=== PATIENT | female | born 1995 | race Caucasian/White ===

== ENCOUNTER 2017-04-04 11:08 | Emergency (ER) | payer BC, OTHER ==
[~2017-04-04] VITALS: Ht 167.6 cm; Wt 53.2 kg
[~2017-04-04 11:08] MED LIST: ALBU0.63 NEB
[2017-04-04] MEDS ORDERED: ALBUTEROL/IPRATROPIUM 2.5MG/0.5MG, 3 ML NPPB ONE (12:30)
[2017-04-04] MEDS ORDERED: ALBUTEROL/IPRATROPIUM 2.5MG/0.5MG, 3 ML ONE (12:45)
[2017-04-04 12:51] LABS: RAPID INFLUENZA A POSITIVE (Negative); RAPID INFLUENZA B Negative (Negative)
[2017-04-04] MEDS ORDERED: HYDROmorphone 1 MG/ML, 1ML IM ONE (14:00)
[2017-04-04] MEDS ORDERED: HYDROmorphone 2 MG/ML, 1ML ONE (14:01)
[2017-04-04 14:56] VITALS: BP 120/76
== END 2017-04-04 14:58 | disposition home or self-care (01) ==
LOC: ED 13:19
DX: J45.30 Mild persistent asthma, uncomplicated (principal); J11.1 Influenza due to unidentified influenza virus with other respiratory manifestations; J98.2 Interstitial emphysema; J00 Acute nasopharyngitis [common cold]
CPT/HCPCS: 71020; 87400; 94640; 96372; 99285; J1170; J7512; J7620

== ENCOUNTER 2017-04-04 20:43 | Emergency (ER) | payer OTHER ==
[~2017-04-04] VITALS: Ht 167.6 cm; Wt 53.2 kg
[2017-04-04] MEDS ORDERED: methylPREDNISolone SOD SUCC 125 MG/2 ML IVP ONE (21:30)
[2017-04-04] MEDS ORDERED: ALBUTEROL/IPRATROPIUM 2.5MG/0.5MG, 3 ML NPPB SCH (21:30)
[2017-04-04] MEDS ORDERED: ALBUTEROL/IPRATROPIUM 2.5MG/0.5MG, 3 ML NPPB PRN (21:30)
[2017-04-04] MEDS ORDERED: SODIUM CHLORIDE 0.9% 1,000ML IVBOLUS ONE (21:30)
[2017-04-04] MEDS ORDERED: SODIUM CHLORIDE FLUSH 10ML SYR IVF ONE (21:30)
[2017-04-04] MEDS ORDERED: ALBUTEROL/IPRATROPIUM 2.5MG/0.5MG, 3 ML ONE (21:36)
[2017-04-04 23:31] VITALS: BP 108/51
== END 2017-04-04 23:33 | disposition home or self-care (01) ==
LOC: ED 23:26
DX: J45.41 Moderate persistent asthma with (acute) exacerbation (principal); J10.1 Influenza due to other identified influenza virus with other respiratory manifestations
CPT/HCPCS: 71010; 93005; 94640; 99284

== ENCOUNTER 2017-06-20 23:18 | Inpatient (IN) | payer OTHER ==
[~2017-06-20] VITALS: Ht 167.6 cm; Wt 55.1 kg
[2017-06-20] MEDS ORDERED: SODIUM CHLORIDE 0.9% 1,000ML IVBOLUS ONE (23:30)
[2017-06-20] MEDS ORDERED: methylPREDNISolone SOD SUCC 125 MG/2 ML IVP ONE (23:30)
[2017-06-20] MEDS ORDERED: SODIUM CHLORIDE FLUSH 10ML SYR IVF ONE (23:30)
[2017-06-20] MEDS ORDERED: ALBUTEROL SULFATE 2.5 MG/3 ML NPPB ONE (23:30)
[2017-06-20] MEDS ORDERED: MAGNESIUM SULFATE PMX 2GM/50ML 50 ML IV ONE (23:30)
[2017-06-20] MEDS ORDERED: methylPREDNISolone SOD SUCC 125 MG/2 ML ONE (23:40)
[2017-06-20 23:41] LABS: BASOPHILS # (AUTO) 0.04 x10^3/uL (0-0.1); BASOPHILS % (AUTO) 0 % (0-1); EOSINOPHILS # (AUTO) 1.16 x10^3/uL (0-0.4); EOSINOPHILS % (AUTO) 9 % (1-7); LYMPHOCYTES # (AUTO) 2.06 x10^3/uL (1-3.4); LYMPHOCYTES % (AUTO) 16 % (22-44); MD NO; MEAN CORPUSCULAR HEMOGLOBIN 29.4 pg (27.0-34.8); MEAN CORPUSCULAR HGB CONC 34.2 g/dL (32.4-35.8); MEAN PLATELET VOLUME 8.3 fL (7.4-10.4); MONOCYTES # (AUTO) 0.86 x10^3/uL (0.2-0.8); MONOCYTES % (AUTO) 7 % (2-9); NEUTROPHILS # (AUTO) 9.02 x10^3/uL (1.8-6.8); NEUTROPHILS % (AUTO) 69 % (42-75); PLATELET COUNT 227 x10^3/uL (130-400); RED BLOOD COUNT 4.69 x10^6/uL (3.82-5.3); RED CELL DISTRIBUTION WIDTH 13.4 % (9.6-15.2)
[2017-06-20 23:51] LABS: ALBUMIN 3.8 g/dL (3.4-5.0); ANION GAP 6 mmol/L (5-15); CALCIUM 8.2 mg/dL (8.5-10.1); CHLORIDE 109 mmol/L (98-107); CREATININE 0.88 mg/dL (0.55-1.02)
[2017-06-21] MEDS ORDERED: KETOROLAC 30 MG/1 ML IVPush ONE (01:30)
[2017-06-21] MEDS ORDERED: KETOROLAC 30 MG/1 ML ONE (02:11)
[2017-06-21 03:22] VITALS: BP 109/62
[2017-06-21] MEDS ORDERED: ALBUTEROL/IPRATROPIUM 2.5MG/0.5MG, 3 ML NPPB PRN (03:30)
[2017-06-21] MEDS: HEPARIN 5,000 UNITS/ML, 1ML SQ SCH ×3 (04:14→20:30)
[2017-06-21] MEDS: FLUTICASONE/VILANTEROL 200-25MCG/INH INH SCH ×2 (04:14→09:56)
[2017-06-21] MEDS: SODIUM CHLORIDE 0.9% 1,000 ML IV SCH ×2 (04:23→13:59)
[2017-06-21] MEDS: methylPREDNISolone SOD SUCC 125 MG/2 ML IVPush SCH ×4 (04:23→21:36)
[2017-06-21] MEDS ORDERED: LORATADINE 10 MG TABLET PO PRN (04:30)
[2017-06-21] MEDS ORDERED: DOCUSATE 100 MG CAPSULE PO PRN (04:30)
[2017-06-21] MEDS ORDERED: BISACODYL 10 MG SUPP PR PRN (04:30)
[2017-06-21] MEDS ORDERED: ENALAPRILAT 1.25 MG/ML, 2ML IVPush PRN (04:30)
[2017-06-21] MEDS ORDERED: OXYcodone IR 5MG TABLET PO PRN (04:30)
[2017-06-21] MEDS ORDERED: ONDANSETRON 2MG/ML, 2ML IVPush PRN (04:30)
[2017-06-21] MEDS ORDERED: ACETAMINOPHEN 325 MG TABLET PO PRN (04:30)
[2017-06-21] MEDS ORDERED: hydrALAzine 20 MG/ML, 1ML IVPush PRN (04:30)
[2017-06-21] MEDS ORDERED: POLYETHYLENE GLYCOL 17 GM PACKET PO PRN (04:30)
[2017-06-21] MEDS ORDERED: morphine SULFATE 10 MG/ML, 1ML IVPush PRN (04:30)
[2017-06-21] MEDS: ALBUTEROL/IPRATROPIUM 2.5MG/0.5MG, 3 ML NPPB SCH ×6 (04:55→22:53)
[2017-06-21 05:37] LABS: FREE T4 (FREE THYROXINE) 1.18 ng/dL (0.76-1.46)
[2017-06-21 06:10] LABS: HEMOGLOBIN A1C 4.9 % (4.2-6.3)
[2017-06-21 07:05] VITALS: BP 92/49
[2017-06-21 12:40] VITALS: BP 101/67
[2017-06-21] MEDS ORDERED: DILTIAZEM 5 MG/ML, 5ML IVPush PRN (18:00)
[2017-06-21 19:13] VITALS: BP 117/67
[2017-06-22 00:48] VITALS: BP 104/63
[2017-06-22] MEDS: HEPARIN 5,000 UNITS/ML, 1ML SQ SCH ×2 (03:44→12:03)
[2017-06-22] MEDS: methylPREDNISolone SOD SUCC 125 MG/2 ML IVPush SCH ×2 (04:39→10:03)
[2017-06-22 05:38] LABS: MEAN CORPUSCULAR HEMOGLOBIN 29.1 pg (27.0-34.8); MEAN CORPUSCULAR HGB CONC 33.9 g/dL (32.4-35.8); MEAN CORPUSCULAR VOLUME 86.1 fL (80-100); MEAN PLATELET VOLUME 8.9 fL (7.4-10.4); PLATELET COUNT 254 x10^3/uL (130-400); RED BLOOD COUNT 4.53 x10^6/uL (3.82-5.3); RED CELL DISTRIBUTION WIDTH 13.6 % (9.6-15.2)
[2017-06-22 05:39] LABS: CHLORIDE 111 mmol/L (98-107)
[2017-06-22 05:52] LABS: ALANINE AMINOTRANSFERASE 19 U/L (12-78); ALBUMIN 3.4 g/dL (3.4-5.0); ALKALINE PHOSPHATASE 52 U/L (45-117); ANION GAP 13 mmol/L (5-15); BILIRUBIN,TOTAL 0.2 mg/dL (0.2-1.0); CALCIUM 8.1 mg/dL (8.5-10.1); CHOL/HDL RATIO 2.5; CHOLESTEROL, TOTAL 127 mg/dL (140-239); CREATININE 0.78 mg/dL (0.55-1.02); HDL CHOL % 40 % (28-40); HDL CHOLESTEROL (DIRECT) 51 mg/dL (40-60); LDL CHOLESTEROL,CALCULATED 65 mg/dL (54-169); LDL/HDL RATIO 1.3 (0.5-3.0); TOTAL PROTEIN 6.8 g/dL (6.4-8.2); TRIGLYCERIDES 55 mg/dL (50-200); VLDL CHOLESTEROL 11 mg/dL (0-25)
[2017-06-22 06:00] LABS: MD YES
[2017-06-22 06:01] LABS: BAND#(MANUAL) 0.45 x10^3/uL; BANDS%(MANUAL) 2 % (0-7); LYMPH#(MANUAL) 2.02 x10^3/uL (1-3.4); LYMPHS% (MANUAL) 9 % (22-44); MONOS#(MANUAL) 0.45 x10^3/uL (0.3-2.7); MONOS% (MANUAL) 2 % (2-9); SEG#(MANUAL) 19.49 x10^3/uL (1.8-6.8); SEGS% (MANUAL) 87 % (42-75)
[2017-06-22 06:02] LABS: <PLATELET ESTIMATE> ADEQUATE; <PLT MORPHOLOGY> NORMAL PLT MORPH; <RBC MORPHOLOGY> NORMAL
[2017-06-22 07:05] VITALS: BP 105/62
[2017-06-22] MEDS: ALBUTEROL/IPRATROPIUM 2.5MG/0.5MG, 3 ML NPPB SCH ×2 (07:10→11:30)
[2017-06-22] MEDS: FLUTICASONE/VILANTEROL 200-25MCG/INH INH SCH (09:24)
[2017-06-22] MEDS ORDERED: DILTIAZEM 60 MG CAP.ER.12H PO SCH (10:30)
[2017-06-22] MEDS ORDERED: ALBU90AE INH (12:15)
[2017-06-22] MEDS ORDERED: IPRA3AMP NPPB (12:15)
[2017-06-22] MEDS ORDERED: DILT60CA PO (12:15)
[2017-06-22] MEDS ORDERED: METH4TAB2 PO (12:15)
[2017-06-22] MEDS ORDERED: FLUT1BLS INH (12:15)
[2017-06-22] MEDS ORDERED: LORA10TA75 PO (12:15)
[2017-06-22] MEDS ORDERED: ALBUTEROL SULFATE 2.5 MG/3 ML NPPB PRN (12:30)
[2017-06-22 12:51] VITALS: BP 114/71
== END 2017-06-22 13:23 | disposition home or self-care (01) | DRG 189 ==
LOC: ED 23:59 → EDIP 06-21 03:01 → 4EST 06-21 03:11 → DCLOUNGE 06-22 13:15
PROVIDERS: ADMIT Internal Medicine; ATTEND Family Medicine
DX: J96.00 Acute respiratory failure, unspecified whether with hypoxia or hypercapnia (principal); J45.902 Unspecified asthma with status asthmaticus; M47.816 Spondylosis without myelopathy or radiculopathy, lumbar region; D72.829 Elevated white blood cell count, unspecified; Z80.3 Family history of malignant neoplasm of breast; Z83.3 Family history of diabetes mellitus; Z88.1 Allergy status to other antibiotic agents
CPT/HCPCS: 36415; 71045; 80048; 80053; 80061; 82040; 83036; 83735; 84439; 84443; 84703; 85025; 94640; 94644; 96374; 96375; J1885; J7613; J7620; J2930; J3475; J7030

== ENCOUNTER 2017-12-28 21:41 | Emergency (ER) | payer MEDICAID ==
[~2017-12-28] VITALS: Ht 167.6 cm; Wt 55.2 kg
[~2017-12-28 21:41] MED LIST changes: +ALBU90AE INH; +DILT60CA PO; +FLUT1BLS INH; +IPRA3AMP30 NPPB; +LORA10TA75 PO; +METH4TAB2 PO
[2017-12-28 21:43] VITALS: BP 113/83
== END 2017-12-28 22:43 | disposition home or self-care (01) ==
LOC: EDUNIT# 21:41 → ED 22:37
DX: Z02.9 Encounter for administrative examinations, unspecified (principal)

== ENCOUNTER 2017-12-28 22:38 | Emergency (ER) | payer MEDICAID ==
[~2017-12-28] VITALS: Ht 167.6 cm; Wt 55.2 kg
[2017-12-28 22:50] VITALS: BP 113/83
[2017-12-28 23:10] LABS: HCG UR SG 1.004 (1.003-1.030); MICROSCOPIC AUTO
[2017-12-28 23:11] LABS: CULTURE INDICATED? YES
== END 2017-12-28 23:41 | disposition home or self-care (01) ==
LOC: ED 23:10
DX: N30.00 Acute cystitis without hematuria (principal); J45.909 Unspecified asthma, uncomplicated
CPT/HCPCS: 81001; 81025; 87077; 87086; 87186; 99284

== ENCOUNTER 2019-02-17 14:27 | Inpatient (IN) | payer OTHER ==
[~2019-02-17] VITALS: Ht 165.1 cm; Wt 52.1 kg
--- NOTE | 2019-02-17 14:46 | NUR ---
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
--- NOTE | 2019-02-17 14:58 | NUR ---
TASK RN: PT PLACED ON MONITOR, PT ON 2.5L NC SPO2 96%, HR 136 RN AWARE, PT STATES SHE HAS BEEN TAKING HER INHALER "LIKE 70 TIMES" WITH NO RELIEF. REPORT TO PRIMARY RN DUNCAN
[2019-02-17] MEDS ORDERED: ALBUTEROL 0.5%, 20ML NPPBCONT STA (15:11)
[2019-02-17] MEDS ORDERED: ALBUTEROL 0.5%, 20ML ONE (15:15)
[2019-02-17] MEDS ORDERED: MAGNESIUM SULFATE PMX 2GM/50ML 50 ML IVPB ONE (15:30)
[2019-02-17] MEDS ORDERED: SODIUM CHLORIDE FLUSH 10ML SYR IVF ONE (15:30)
[2019-02-17 15:41] LABS: ALBUMIN 4.4 g/dL (3.4-5.0); ANION GAP 6 mmol/L (5-15); CALCIUM 8.9 mg/dL (8.5-10.1); CHLORIDE 111 mmol/L (98-107)
[2019-02-17 15:51] LABS: BASOPHILS % (AUTO) 1 % (0-1); EOSINOPHILS # (AUTO) 0.63 x10^3/uL (0-0.4); EOSINOPHILS % (AUTO) 5 % (1-7); LYMPHOCYTES # (AUTO) 1.78 x10^3/uL (1-3.4); LYMPHOCYTES % (AUTO) 15 % (22-44); MD NO; MEAN CORPUSCULAR HEMOGLOBIN 29.5 pg (27.0-34.8); MEAN CORPUSCULAR HGB CONC 33.7 g/dL (32.4-35.8); MEAN CORPUSCULAR VOLUME 87.6 fL (80-100); MEAN PLATELET VOLUME 8.6 fL (7.4-10.4); MONOCYTES % (AUTO) 5 % (2-9); NEUTROPHILS # (AUTO) 8.73 x10^3/uL (1.8-6.8); NEUTROPHILS % (AUTO) 74 % (42-75); PLATELET COUNT 200 x10^3/uL (130-400); RED BLOOD COUNT 5.25 x10^6/uL (3.82-5.3); RED CELL DISTRIBUTION WIDTH 14.8 % (9.6-15.2)
[2019-02-17] MEDS ORDERED: LORazepam 2 MG/ML, 1ML ONE (15:57)
[2019-02-17] MEDS ORDERED: MAGNESIUM SULFATE PMX 2GM/50ML 50 ML ONE (15:57)
[2019-02-17] MEDS ORDERED: LORazepam 2 MG/ML, 1ML IVPush ONE (16:00)
[2019-02-17] MEDS ORDERED: DIPH25CA61 PO (16:12)
--- NOTE | 2019-02-17 16:14 | NUR ---
MEDS GIVEN PER ERP ORDER. VS UPDATED IN COMPUTER, MED REC UPDATED WELL. CALL LIGHT WITHIN REACH.
--- NOTE | 2019-02-17 17:06 | NUR ---
REPORT TO ANDREIA, TRANSFER OF CARE AT THIS TIME.
--- NOTE | 2019-02-17 17:23 | NUR ---
PT SITTING UP IN BED USING CELL PHONE. NAD NOTED AT THIS TIME. RESPIRATIONS EVEN AND UNLABORED ON RA. PT REPORTS SLIGHT CP "MY CHEST IS SORE" 2/10 UPON RN PAIN ASSESSMENT. SIDE RAIL UP, CALL LIGHT IN REACH.
--- NOTE | 2019-02-17 18:15 | NUR ---
Pt asleep in bed, simple mask with humidified air. NAD noted at this time. Side rail up, call light in reach. Mother at bedside. Awaiting Admit bed.
[2019-02-17] MEDS: SODIUM CHLORIDE 0.9% 1,000 ML IV SCH (18:35)
[2019-02-17] MEDS ORDERED: hydrALAzine 20 MG/ML, 1ML IVPush PRN (19:00)
[2019-02-17] MEDS ORDERED: PROMETHAZINE 25 MG/ML, 1ML IM PRN (19:00)
[2019-02-17] MEDS ORDERED: POTASSIUM CHLORIDE 40 MEQ in SODIUM CHLORIDE 0.9% 500 ML IV ONE (19:00)
[2019-02-17] MEDS ORDERED: ONDANSETRON 2MG/ML, 2ML IVPush PRN (19:00)
[2019-02-17] MEDS ORDERED: OXYcodone IR 5MG TABLET PO PRN (19:00)
[2019-02-17] MEDS ORDERED: POLYETHYLENE GLYCOL 17 GM PACKET PO PRN (19:00)
[2019-02-17] MEDS ORDERED: ACETAMINOPHEN 325 MG TABLET PO PRN (19:00)
[2019-02-17] MEDS ORDERED: morphine SULFATE 10 MG/ML, 1ML IVPush PRN (19:00)
[2019-02-17] MEDS ORDERED: ONDANSETRON ODT 4 MG PO PRN (19:00)
[2019-02-17] MEDS ORDERED: DOCUSATE 100 MG CAPSULE PO PRN (19:00)
[2019-02-17] MEDS ORDERED: BISACODYL 10 MG SUPP PR PRN (19:00)
[2019-02-17 19:12] LABS: FREE T4 (FREE THYROXINE) 1.1 ng/dL (0.76-1.46)
[2019-02-17 19:16] LABS: HEMOGLOBIN A1C 4.9 % (4.2-6.3)
[2019-02-17] MEDS: ENOXAPARIN 40 MG/0.4 ML SQ SCH (21:13)
[2019-02-17] MEDS: methylPREDNISolone SOD SUCC 125 MG/2 ML IVPush SCH (21:13)
[2019-02-17] MEDS: AZITHROMYCIN 500 MG in SODIUM CHLORIDE 0.9% 250 ML IV SCH (21:13)
[2019-02-18 00:59] VITALS: BP 108/68
[2019-02-18] MEDS ORDERED: ALBUTEROL/IPRATROPIUM 2.5MG/0.5MG, 3 ML ONE (01:21)
[2019-02-18] MEDS ORDERED: ALBUTEROL SULFATE 2.5 MG/3 ML ONE (01:23)
[2019-02-18] MEDS: ALBUTEROL SULFATE 2.5 MG/3 ML NPPB SCH ×5 (01:28→19:12)
[2019-02-18] MEDS: methylPREDNISolone SOD SUCC 125 MG/2 ML IVPush SCH ×4 (03:17→20:58)
[2019-02-18 06:07] LABS: BASOPHILS # (AUTO) 0.03 x10^3/uL (0-0.1); BASOPHILS % (AUTO) 0 % (0-1); EOSINOPHILS % (AUTO) 0 % (1-7); LYMPHOCYTES # (AUTO) 0.47 x10^3/uL (1-3.4); LYMPHOCYTES % (AUTO) 5 % (22-44); MD NO; MEAN CORPUSCULAR HEMOGLOBIN 29.1 pg (27.0-34.8); MEAN CORPUSCULAR HGB CONC 32.8 g/dL (32.4-35.8); MEAN CORPUSCULAR VOLUME 88.7 fL (80-100); MEAN PLATELET VOLUME 8.4 fL (7.4-10.4); MONOCYTES # (AUTO) 0.11 x10^3/uL (0.2-0.8); MONOCYTES % (AUTO) 1 % (2-9); NEUTROPHILS # (AUTO) 8.98 x10^3/uL (1.8-6.8); NEUTROPHILS % (AUTO) 94 % (42-75); PLATELET COUNT 209 x10^3/uL (130-400); RED BLOOD COUNT 4.94 x10^6/uL (3.82-5.3); RED CELL DISTRIBUTION WIDTH 14.6 % (9.6-15.2)
[2019-02-18 06:12] LABS: ANION GAP 6 mmol/L (5-15); CALCIUM 8.5 mg/dL (8.5-10.1); CHLORIDE 112 mmol/L (98-107)
[2019-02-18 06:16] LABS: ALANINE AMINOTRANSFERASE 19 U/L (12-78); ALKALINE PHOSPHATASE 76 U/L (45-117); BILIRUBIN,TOTAL 0.3 mg/dL (0.2-1.0); CHOL/HDL RATIO 2.3; CHOLESTEROL, TOTAL 129 mg/dL (140-239); CREATININE 0.74 mg/dL (0.55-1.02); HDL CHOL % 44 % (28-40); HDL CHOLESTEROL (DIRECT) 57 mg/dL (40-60); LDL CHOLESTEROL,CALCULATED 58 mg/dL (54-169); TOTAL PROTEIN 7.4 g/dL (6.4-8.2); TRIGLYCERIDES 70 mg/dL (50-200); VLDL CHOLESTEROL 14 mg/dL (0-25)
[2019-02-18 08:20] VITALS: BP 105/70
[2019-02-18] MEDS: SODIUM CHLORIDE 0.9% 1,000 ML IV SCH (10:09)
[2019-02-18] MEDS: LORATADINE 10 MG TABLET PO SCH (10:14)
[2019-02-18 13:05] VITALS: BP 121/72
[2019-02-18 13:43] LABS: MICROSCOPIC NOT IND
[2019-02-18 13:49] LABS: CULTURE INDICATED? NO
[2019-02-18] MEDS: GUAIFENESIN 200 MG TABLET PO SCH ×2 (15:39→20:58)
[2019-02-18 20:51] VITALS: BP 107/71
[2019-02-18] MEDS: ENOXAPARIN 40 MG/0.4 ML SQ SCH (20:58)
[2019-02-18] MEDS: AZITHROMYCIN 500 MG in SODIUM CHLORIDE 0.9% 250 ML IV SCH (20:58)
[2019-02-19 01:43] VITALS: BP 132/64
[2019-02-19] MEDS: methylPREDNISolone SOD SUCC 125 MG/2 ML IVPush SCH (03:02)
[2019-02-19 04:56] LABS: BASOPHILS # (AUTO) 0.08 x10^3/uL (0-0.1); BASOPHILS % (AUTO) 1 % (0-1); EOSINOPHILS # (AUTO) 0.08 x10^3/uL (0-0.4); EOSINOPHILS % (AUTO) 1 % (1-7); LYMPHOCYTES # (AUTO) 0.75 x10^3/uL (1-3.4); LYMPHOCYTES % (AUTO) 4 % (22-44); MD NO; MEAN CORPUSCULAR HEMOGLOBIN 29.7 pg (27.0-34.8); MEAN CORPUSCULAR HGB CONC 32.7 g/dL (32.4-35.8); MEAN CORPUSCULAR VOLUME 90.8 fL (80-100); MEAN PLATELET VOLUME 8.7 fL (7.4-10.4); MONOCYTES # (AUTO) 0.47 x10^3/uL (0.2-0.8); MONOCYTES % (AUTO) 3 % (2-9); NEUTROPHILS # (AUTO) 15.76 x10^3/uL (1.8-6.8); NEUTROPHILS % (AUTO) 92 % (42-75); PLATELET COUNT 212 x10^3/uL (130-400); RED BLOOD COUNT 4.72 x10^6/uL (3.82-5.3); RED CELL DISTRIBUTION WIDTH 14.8 % (9.6-15.2)
[2019-02-19 04:59] LABS: CHLORIDE 112 mmol/L (98-107)
[2019-02-19 05:08] LABS: ALANINE AMINOTRANSFERASE 18 U/L (12-78); ALBUMIN 3.8 g/dL (3.4-5.0); ALKALINE PHOSPHATASE 73 U/L (45-117); ANION GAP 5 mmol/L (5-15); BILIRUBIN,TOTAL 0.3 mg/dL (0.2-1.0); CALCIUM 8.5 mg/dL (8.5-10.1); CREATININE 0.75 mg/dL (0.55-1.02); TOTAL PROTEIN 7.4 g/dL (6.4-8.2)
[2019-02-19] MEDS: ALBUTEROL SULFATE 2.5 MG/3 ML NPPB SCH (06:47)
[2019-02-19 06:50] VITALS: BP 104/65
[2019-02-19] MEDS: GUAIFENESIN 200 MG TABLET PO SCH ×2 (06:53→12:34)
[2019-02-19] MEDS ORDERED: predniSONE 50MG TABLET PO SCH (08:00)
[2019-02-19] MEDS ORDERED: ALBUTEROL SULFATE 2.5 MG/3 ML NPPB PRN (09:00)
[2019-02-19] MEDS: LORATADINE 10 MG TABLET PO SCH (09:03)
[2019-02-19] MEDS ORDERED: SODIUM CHLORIDE 0.9% 1,000ML IVBOLUS ONE (10:00)
[2019-02-19] MEDS ORDERED: PRED10TA PO (11:05)
[2019-02-19 12:20] VITALS: BP 113/74
[2019-02-19] MEDS ORDERED: AZITHROMYCIN 500 MG TABLET PO SCH (19:00)
== END 2019-02-19 13:23 | disposition home or self-care (01) | DRG 189 ==
LOC: ED 17:56 → EDIP 17:57 → ED 18:06 → 4WST 19:54 → DCLOUNGE 02-19 13:07
PROVIDERS: ADMIT Internal Medicine; ATTEND Hospitalist
DX: J96.01 Acute respiratory failure with hypoxia (principal); J45.52 Severe persistent asthma with status asthmaticus; J40 Bronchitis, not specified as acute or chronic; M47.816 Spondylosis without myelopathy or radiculopathy, lumbar region; Z87.440 Personal history of urinary (tract) infections; Z87.01 Personal history of pneumonia (recurrent); Z83.3 Family history of diabetes mellitus; Z80.3 Family history of malignant neoplasm of breast; Z88.0 Allergy status to penicillin; Z90.89 Acquired absence of other organs; Z79.899 Other long term (current) drug therapy
CPT/HCPCS: 36415; 99285; J7611; J7613; 80048; 80053; 80061; 81003; 82040; 83036; 83735; 84100; 84439; 84443; 84703; 85025; 94640; 94644; G0378; J0456; J1650; J3480; J2060; J2930; J3475; J7030; J7040; J7050; J7512

== ENCOUNTER 2019-05-07 11:34 | Emergency (ER) | payer OTHER ==
[~2019-05-07] VITALS: Ht 165.1 cm; Wt 54.7 kg
[~2019-05-07 11:34] MED LIST changes: +DIPH25CA61 PO; +PRED10TA PO
--- NOTE | 2019-05-07 11:53 | NUR ---
Debo MENDOZA at bedside to evaluate pt. Pt c/o cough since , worsening over the last 2 days. Pt states hx of asthma, out of rescue inhaler but does have an albuterol nebulizer at home that she has used x2 today with some relief. Pt speaking in full sentences with occasional dry cough. Pt's skin P[place]ne, JT.
[2019-05-07] MEDS ORDERED: ALBUTEROL/IPRATROPIUM 2.5MG/0.5MG, 3 ML NPPB ONE (12:00)
[2019-05-07] MEDS ORDERED: ALBUTEROL/IPRATROPIUM 2.5MG/0.5MG, 3 ML ONE (12:30)
[2019-05-07 12:43] VITALS: BP 105/76
== END 2019-05-07 13:37 | disposition home or self-care (01) ==
LOC: ED 11:57
DX: J45.909 Unspecified asthma, uncomplicated (principal); J02.8 Acute pharyngitis due to other specified organisms; B97.89 Other viral agents as the cause of diseases classified elsewhere; J06.9 Acute upper respiratory infection, unspecified
CPT/HCPCS: 71046; 87081; 87880; 94640; 99284; J7620

== ENCOUNTER 2019-10-17 20:59 | Emergency (ER) | payer SELFPAY ==
[~2019-10-17] VITALS: Ht 162.6 cm; Wt 52.8 kg
--- NOTE | 2019-10-17 21:12 | NUR ---
Pt here for bilateral hand pain, pt reports hx of the same.
[2019-10-17 22:12] VITALS: BP 123/62
--- NOTE | 2019-10-17 22:20 | NUR ---
Patient/Caregiver given discharge instructions and they have confirmed that they understand the instructions. Patient ambulatory with steady gait.
== END 2019-10-17 23:00 | disposition home or self-care (01) ==
LOC: ED 22:24
DX: L30.1 Dyshidrosis [pompholyx] (principal); J45.909 Unspecified asthma, uncomplicated
CPT/HCPCS: 99283